=== PATIENT | male | born 1970 | race Caucasian/White ===

== ENCOUNTER 2018-06-09 18:21 | Emergency (ER) | payer SELFPAY ==
[~2018-06-09] VITALS: Ht 170.2 cm; Wt 73.0 kg
[2018-06-09] MEDS ORDERED: MORPHINE SULFATE 2 MG/ML CPJ (NOT FOR IM USE) IV ONE (22:30)
[2018-06-09 22:38] LABS: CLARITY URINE CLEAR (CLEAR); COLOR URINE YELLOW (YELLOW); KETONES URINE TRACE (NEGATIVE); LEUKOCYTE ESTERASE URINE NEGATIVE (NEGATIVE); NITRITE URINE NEGATIVE (NEGATIVE); OCCULT BLOOD URINE 2+ (NEGATIVE); PROTEIN URINE NEGATIVE (NEGATIVE); SPECIFIC GRAVITY URINE 1.029 (1.005-1.030); UROBILINOGEN URINE 0.2 E.U./dL (0.2-1.0)
[2018-06-09] MEDS ORDERED: TAMSULOSIN HCL 0.4MG SR CAPSULE PO ONE (22:45)
[2018-06-09] MEDS ORDERED: MORPHINE SULFATE 4 MG/ML CPJ (NOT FOR IM USE) IV NR (22:45)
[2018-06-09 23:44] LABS: BASOPHILS % 0.3 % (0.0-2.0); EOSINOPHILS % 0.1 % (0.0-5.0); HEMOGLOBIN. 15.3 g/dL (14.0-18.0); LYMPHOCYTES % 9.8 % (20.0-50.0); MEAN CORPUSCULAR HEMOGLOBIN 31.1 pg (28.0-32.0); MEAN CORPUSCULAR VOLUME 89.3 fL (80.0-94.0); MEAN PLATELET VOLUME 8.8 fl (7.4-10.4); MONOCYTES % 5.9 % (2.0-8.0); NEUTROPHILS % 83.9 % (40.0-76.0); PLATELET 219 x1000/uL (130-400); RED BLOOD CELL COUNT 4.93 mill/uL (4.7-6.1)
[2018-06-09 23:56] LABS: INR 1.1; PARTIAL THROMBOPLASTIN TIME 25.1 sec (23.4-31.0); PROTHROMBIN TIME 10.6 sec (9.1-11.1)
[2018-06-10] MEDS ORDERED: CEFTRIAXONE SODIUM 1 G/VIAL IM ONE (02:00)
[2018-06-10 02:50] VITALS: BP 116/66
== END 2018-06-10 03:13 | disposition home or self-care (01) ==
LOC: ER 18:21
DX: N20.0 Calculus of kidney (principal); G20 Parkinson's disease; Z87.442 Personal history of urinary calculi
CPT/HCPCS: 36415; 80048; 81003; 85025; 85610; 85730; 96372; 96374; 99283; J0696; J2270